=== PATIENT | male | born 1950 | race Caucasian/White ===

== ENCOUNTER → 2023-11-10 10:01 | Outpatient (REF) | payer MEDICARE, OTHER, SELFPAY ==
[2023-11-10 10:40] LABS: % Basophils 0.6 % (0-2); % Eosinophils 1.2 % (0-6); % Immature Granulocytes 0.9 % (0-0.5); % Lymphocytes 22.8 % (20.5-51.1); % Monocytes 14.5 % (1.7-9.3); Absolute Lymphocytes 0.8 10^3/uL (1.2-3.4); Absolute Monocytes 0.5 10^3/uL (0.1-0.6); Absolute Neutrophils 2.1 10^3/uL (1.4-6.5); Hematocrit 27.9 % (39.0-52.0); Mean Corp Hgb Conc. 32.3 g/dL (33.0-37.0); Mean Corpuscular Hgb 26.5 pg (27.0-31.0); Mean Corpuscular Volume 82.3 fL (80.0-94.0); Mean Platelet Volume 8.8 fL (7.4-10.4); Nucleated Red Blood Cells % 0 % (-); Platelet Count 144 10^3/uL (130-400); Red Blood Cell Count 3.39 10^6/uL (4.70-6.10); Red Cell Dist. Width 16.1 % (11.5-14.5); White Blood Cell Count 3.5 10^3/uL (4.8-10.8)
[2023-11-10 11:06] LABS: ALT (SGPT) < 10 U/L (0-50); AST (SGOT) 26 U/L (17-59); Albumin 2.9 g/dl (3.5-5.0); Alkaline Phosphatase 64 U/L (38-126); Blood Urea Nitrogen 20 mg/dl (9-20); Calcium 8.7 mg/dl (8.4-10.2); Carbon Dioxide 32 mmol/L (22-30); Chloride 98 mmol/L (98-107); Glucose 92 mg/dl (70-99); Potassium 4.3 mmol/L (3.5-5.1); Sodium 133 mmol/L (135-145); Total Bilirubin 0.5 mg/dl (0.2-1.3); Total Protein 6.9 g/dl (6.3-8.2); eGFR > 60.00
[2023-11-13 05:30] LABS: Albumin 2.46 g/dL (3.75-5.01); Alpha 1 Globulin 0.57 g/dL (0.19-0.46); Alpha 2 Globulin 0.86 g/dL (0.48-1.05); Free Kappa Light Chains,Quant 122.36 mg/L (3.30-19.40); Free Lambda Light Chains,Quant 36.87 mg/L (5.71-26.30); IgA 137 mg/dL (68-408); IgG 2377 mg/dL (768-1632); IgM 166 mg/dL (35-263); Immunofixation Electrophoresis IFE Done; Kappa/Lambda Fr Light Ratio 3.32 (0.26-1.65); Monoclonal Protein 2.06 g/dL (<=0.00); Total Protein-Electrophoresis 7.1 g/dL (6.3-8.2)
== END ==
LOC: REG 10:01
PROVIDERS: ATTENDING PHYSICIAN Internal Medicine Hematology & Oncology; FAMILY PHYSICIAN Internal Medicine
DX: D50.9 Iron deficiency anemia, unspecified (principal); D47.2 Monoclonal gammopathy; C83.07 Small cell B-cell lymphoma, spleen
CPT/HCPCS: 36415; 80053; 82784; 83521; 84155; 84165; 85025; 86334

== ENCOUNTER → 2023-12-23 08:20 | Outpatient (REF) | payer MEDICARE, OTHER, SELFPAY ==
[2023-12-23 08:59] LABS: % Basophils 0.8 % (0-2); % Immature Granulocytes 0.2 % (0-0.5); % Lymphocytes 53.2 % (20.5-51.1); % Monocytes 8.1 % (1.7-9.3); % Neutrophils 35.7 % (42.2-75.2); Absolute Eosinophils 0.1 10^3/uL (0-0.7); Absolute Lymphocytes 2.7 10^3/uL (1.2-3.4); Absolute Monocytes 0.4 10^3/uL (0.1-0.6); Absolute Neutrophils 1.8 10^3/uL (1.4-6.5); Hematocrit 36.5 % (39.0-52.0); Hemoglobin 11.7 g/dL (13.0-18.0); Mean Corp Hgb Conc. 32.1 g/dL (33.0-37.0); Mean Corpuscular Hgb 27.7 pg (27.0-31.0); Mean Corpuscular Volume 86.5 fL (80.0-94.0); Mean Platelet Volume 9.9 fL (7.4-10.4); Nucleated Red Blood Cells % 0 % (-); Platelet Count 143 10^3/uL (130-400); Red Blood Cell Count 4.22 10^6/uL (4.70-6.10); White Blood Cell Count 5.1 10^3/uL (4.8-10.8)
[2023-12-23 11:18] LABS: ALT (SGPT) < 10 U/L (0-50); AST (SGOT) 20 U/L (17-59); Albumin 3.4 g/dl (3.5-5.0); Alkaline Phosphatase 65 U/L (38-126); Blood Urea Nitrogen 21 mg/dl (9-20); Calcium 8.9 mg/dl (8.4-10.2); Carbon Dioxide 30 mmol/L (22-30); Chloride 102 mmol/L (98-107); Glucose 74 mg/dl (70-99); Potassium 3.8 mmol/L (3.5-5.1); Sodium 137 mmol/L (135-145); Total Bilirubin 0.5 mg/dl (0.2-1.3); Total Protein 7.5 g/dl (6.3-8.2); eGFR > 60.00
[2023-12-25 15:53] LABS: Alpha 1 Globulin 0.33 g/dL (0.19-0.46); Alpha 2 Globulin 0.66 g/dL (0.48-1.05); Free Kappa Light Chains,Quant 81.61 mg/L (3.30-19.40); Free Lambda Light Chains,Quant 28.96 mg/L (5.71-26.30); IgA 171 mg/dL (68-408); IgG 2416 mg/dL (768-1632); IgM 191 mg/dL (35-263); Immunofixation Electrophoresis IFE Done; Kappa/Lambda Fr Light Ratio 2.82 (0.26-1.65); Monoclonal Protein 2.11 g/dL (<=0.00); Total Protein-Electrophoresis 7.4 g/dL (6.3-8.2)
== END ==
LOC: RCS 08:20
PROVIDERS: ATTENDING PHYSICIAN Internal Medicine Hematology & Oncology; FAMILY PHYSICIAN Internal Medicine
DX: D50.9 Iron deficiency anemia, unspecified (principal); D47.2 Monoclonal gammopathy; C83.07 Small cell B-cell lymphoma, spleen
CPT/HCPCS: 36415; 80053; 82784; 83521; 84155; 84165; 85025; 86334; 93005

== ENCOUNTER → 2024-02-04 13:45 | Outpatient (REF) | payer MEDICARE, OTHER, SELFPAY ==
[2024-02-04 14:10] LABS: % Basophils 0.5 % (0-2); % Eosinophils 1.9 % (0-6); % Immature Granulocytes 0.5 % (0-0.5); % Lymphocytes 42.9 % (20.5-51.1); % Monocytes 8.4 % (1.7-9.3); % Neutrophils 45.8 % (42.2-75.2); Absolute Eosinophils 0.1 10^3/uL (0-0.7); Absolute Lymphocytes 1.8 10^3/uL (1.2-3.4); Absolute Monocytes 0.4 10^3/uL (0.1-0.6); Absolute Neutrophils 1.9 10^3/uL (1.4-6.5); Hematocrit 36.2 % (39.0-52.0); Hemoglobin 12.3 g/dL (13.0-18.0); Mean Corpuscular Hgb 30.4 pg (27.0-31.0); Mean Corpuscular Volume 89.4 fL (80.0-94.0); Mean Platelet Volume 10.3 fL (7.4-10.4); Nucleated Red Blood Cells % 0 % (-); Platelet Count 149 10^3/uL (130-400); Red Blood Cell Count 4.05 10^6/uL (4.70-6.10); Red Cell Dist. Width 16.4 % (11.5-14.5); White Blood Cell Count 4.2 10^3/uL (4.8-10.8)
[2024-02-04 14:43] LABS: IgA 130 mg/dl (70-400); IgG 2443 mg/dl (700-1600); IgM 109 mg/dl (40-230)
[2024-02-04 15:06] LABS: ALT (SGPT) < 10 U/L (0-50); AST (SGOT) 22 U/L (17-59); Albumin 3.5 g/dl (3.5-5.0); Alkaline Phosphatase 74 U/L (38-126); Blood Urea Nitrogen 27 mg/dl (9-20); Calcium 8.5 mg/dl (8.4-10.2); Carbon Dioxide 30 mmol/L (22-30); Chloride 102 mmol/L (98-107); Glucose 87 mg/dl (70-99); Potassium 4.4 mmol/L (3.5-5.1); Sodium 136 mmol/L (135-145); Total Bilirubin 0.5 mg/dl (0.2-1.3); eGFR > 60.00
[2024-02-04 15:32] LABS: Total Protein 6.8 g/dl (6.3-8.2)
== END ==
LOC: REG 13:45
PROVIDERS: ATTENDING PHYSICIAN Internal Medicine Hematology & Oncology; FAMILY PHYSICIAN Internal Medicine
DX: D50.9 Iron deficiency anemia, unspecified (principal); D47.2 Monoclonal gammopathy; C83.07 Small cell B-cell lymphoma, spleen
CPT/HCPCS: 36415; 80053; 82784; 83521; 84155; 84165; 85025; 86334

== ENCOUNTER → 2024-04-08 10:17 | Outpatient (REF) | payer MEDICARE, OTHER, SELFPAY | LOC: RAD 10:17 | PROVIDERS: ATTENDING PHYSICIAN Internal Medicine Hematology & Oncology; FAMILY PHYSICIAN Internal Medicine | DX: D50.9 Iron deficiency anemia, unspecified (principal); D47.2 Monoclonal gammopathy; C83.07 Small cell B-cell lymphoma, spleen | CPT/HCPCS: 71260; 74177; Q9967 ==

== ENCOUNTER → 2024-04-20 08:22 | Outpatient (REF) | payer MEDICARE, OTHER, SELFPAY ==
[2024-04-20 09:17] LABS: % Basophils 0.4 % (0-2); % Eosinophils 1.1 % (0-6); % Immature Granulocytes 0.9 % (0-0.5); % Lymphocytes 36.1 % (20.5-51.1); % Monocytes 10.6 % (1.7-9.3); % Neutrophils 50.9 % (42.2-75.2); Absolute Eosinophils 0.1 10^3/uL (0-0.7); Absolute Immature Granulocytes 0.1 10^3/uL (0-0.05); Absolute Monocytes 0.6 10^3/uL (0.1-0.6); Absolute Neutrophils 2.8 10^3/uL (1.4-6.5); Hematocrit 40.7 % (39.0-52.0); Hemoglobin 13.4 g/dL (13.0-18.0); Mean Corp Hgb Conc. 32.9 g/dL (33.0-37.0); Mean Corpuscular Hgb 29.9 pg (27.0-31.0); Mean Corpuscular Volume 90.8 fL (80.0-94.0); Mean Platelet Volume 10.5 fL (7.4-10.4); Nucleated Red Blood Cells % 0 % (-); Platelet Count 213 10^3/uL (130-400); Red Blood Cell Count 4.48 10^6/uL (4.70-6.10); Red Cell Dist. Width 13.7 % (11.5-14.5); White Blood Cell Count 5.5 10^3/uL (4.8-10.8)
[2024-04-20 10:43] LABS: ALT (SGPT) 10 U/L (0-50); AST (SGOT) 17 U/L (17-59); Albumin 3.5 g/dl (3.5-5.0); Alkaline Phosphatase 62 U/L (38-126); Blood Urea Nitrogen 20 mg/dl (9-20); Carbon Dioxide 32 mmol/L (22-30); Chloride 102 mmol/L (98-107); Glucose 78 mg/dl (70-99); Potassium 4.3 mmol/L (3.5-5.1); Sodium 140 mmol/L (135-145); Total Bilirubin 0.7 mg/dl (0.2-1.3); eGFR > 60.00
[2024-04-23 09:27] LABS: Albumin 3.06 g/dL (3.75-5.01); Alpha 1 Globulin 0.45 g/dL (0.19-0.46); Alpha 2 Globulin 0.77 g/dL (0.48-1.05); Free Kappa Light Chains,Quant 53.98 mg/L (3.30-19.40); Free Lambda Light Chains,Quant 21.56 mg/L (5.71-26.30); IgA 125 mg/dL (68-408); IgG 2012 mg/dL (768-1632); IgM 81 mg/dL (35-263); Immunofixation Electrophoresis IFE Done; Monoclonal Protein 1.64 g/dL (<=0.00); Total Protein-Electrophoresis 6.9 g/dL (6.3-8.2)
== END ==
LOC: REG 08:22
PROVIDERS: ATTENDING PHYSICIAN Internal Medicine Hematology & Oncology; FAMILY PHYSICIAN Internal Medicine
DX: D50.9 Iron deficiency anemia, unspecified (principal); D47.2 Monoclonal gammopathy; C83.07 Small cell B-cell lymphoma, spleen
CPT/HCPCS: 36415; 80053; 82784; 83521; 84155; 84165; 85025; 86334

== ENCOUNTER → 2024-07-08 13:47 | Outpatient (REF) | payer MEDICARE, OTHER, SELFPAY ==
[2024-07-08 14:26] LABS: % Basophils 0.4 % (0-2); % Immature Granulocytes 0.2 % (0-0.5); % Lymphocytes 42.2 % (20.5-51.1); % Monocytes 7.6 % (1.7-9.3); % Neutrophils 48.6 % (42.2-75.2); Absolute Eosinophils 0.1 10^3/uL (0-0.7); Absolute Lymphocytes 2.1 10^3/uL (1.2-3.4); Absolute Monocytes 0.4 10^3/uL (0.1-0.6); Absolute Neutrophils 2.4 10^3/uL (1.4-6.5); Hematocrit 43.2 % (39.0-52.0); Hemoglobin 14.2 g/dL (13.0-18.0); Mean Corp Hgb Conc. 32.9 g/dL (33.0-37.0); Mean Corpuscular Hgb 30.5 pg (27.0-31.0); Mean Corpuscular Volume 92.9 fL (80.0-94.0); Mean Platelet Volume 10.3 fL (7.4-10.4); Nucleated Red Blood Cells % 0 % (-); Platelet Count 165 10^3/uL (130-400); Red Blood Cell Count 4.65 10^6/uL (4.70-6.10); Red Cell Dist. Width 13.2 % (11.5-14.5); White Blood Cell Count 4.9 10^3/uL (4.8-10.8)
[2024-07-08 14:59] LABS: ALT (SGPT) < 10 U/L (0-50); AST (SGOT) 17 U/L (17-59); Albumin 3.6 g/dl (3.5-5.0); Alkaline Phosphatase 62 U/L (38-126); Blood Urea Nitrogen 22 mg/dl (9-20); Calcium 8.6 mg/dl (8.4-10.2); Carbon Dioxide 33 mmol/L (22-30); Chloride 100 mmol/L (98-107); Glucose 118 mg/dl (70-99); Potassium 4.1 mmol/L (3.5-5.1); Sodium 137 mmol/L (135-145); Total Bilirubin 0.4 mg/dl (0.2-1.3); eGFR > 60.00
== END ==
LOC: REG 13:47
PROVIDERS: ATTENDING PHYSICIAN Internal Medicine Hematology & Oncology
DX: D50.9 Iron deficiency anemia, unspecified (principal); D47.2 Monoclonal gammopathy; C83.07 Small cell B-cell lymphoma, spleen
CPT/HCPCS: 36415; 80053; 82784; 83521; 84155; 84165; 85025; 86334

== ENCOUNTER → 2025-02-02 06:52 | Outpatient (REF) | payer MEDICARE, OTHER, SELFPAY ==
[2025-02-02 07:28] LABS: Hematocrit 44.4 % (39.0-52.0); Hemoglobin 14.6 g/dL (13.0-18.0); Mean Corp Hgb Conc. 32.9 g/dL (33.0-37.0); Mean Corpuscular Volume 92.9 fL (80.0-94.0); Nucleated Red Blood Cells % 0 % (-); Platelet Count 202 10^3/uL (130-400); Red Cell Dist. Width 12.7 % (11.5-14.5)
[2025-02-02 07:54] LABS: ALT (SGPT) < 10 U/L (0-50); AST (SGOT) 17 U/L (17-59); Albumin 3.7 g/dl (3.5-5.0); Alkaline Phosphatase 50 U/L (38-126); Blood Urea Nitrogen 19 mg/dl (9-20); Calcium 8.8 mg/dl (8.4-10.2); Carbon Dioxide 32 mmol/L (22-30); Chloride 103 mmol/L (98-107); Glucose 99 mg/dl (70-99); HDL Cholesterol 82 mg/dl; LDL Cholesterol, Calculated 64 mg/dl; Potassium 4.2 mmol/L (3.5-5.1); Sodium 137 mmol/L (135-145); Total Protein 7.2 g/dl (6.3-8.2); Very Low Density Lipoprotein 16 mg/dl (0-30); eGFR > 60.00
[2025-02-02 08:06] LABS: Vitamin D, 25-OH*** 48.2 ng/mL (30-80)
== END ==
LOC: REG 06:52
PROVIDERS: ATTENDING PHYSICIAN Internal Medicine
DX: Z00.00 Encounter for general adult medical examination without abnormal findings (principal); Z79.899 Other long term (current) drug therapy; E78.2 Mixed hyperlipidemia; N40.0 Benign prostatic hyperplasia without lower urinary tract symptoms; D50.8 Other iron deficiency anemias
CPT/HCPCS: 36415; 80053; 80061; 82306; 85025